=== PATIENT | female | born 1975 | race Caucasian/White ===

== ENCOUNTER 2016-12-15 02:09 | Emergency (ER) | END 2016-12-15 05:55 | disposition home or self-care (01) | DX: R10.31 Right lower quadrant pain (principal) | CPT/HCPCS: 74176; 80053; 81003; 83690; 85025; 87086; J2270; J2405; J7030 ==

== ENCOUNTER 2018-01-25 17:31 | Emergency (ER) | END 2018-01-25 23:46 | disposition home or self-care (01) ==